=== PATIENT | female | born 1975 | race Caucasian/White ===

== ENCOUNTER 2016-04-19 20:29 | Emergency (ER) | payer BC ==
[~2016-04-19] VITALS: Ht 152.4 cm; Wt 58.2 kg
[~2016-04-19 20:29] MED LIST: DIPH25CA65 PO; VITA400C15 PO
[2016-04-19 20:32] VITALS: TEMP 37.2; Ht 152.4 cm; Wt 58.2 kg
[2016-04-19] MEDS ORDERED: ONDANSETRON INJ 2 MG/ML 2 ML VIAL IV STA (20:49)
[2016-04-19] MEDS ORDERED: FENTANYL CITRATE INJ 50 MCG/1 ML 2 ML VIAL IV STA (20:49)
[2016-04-19] MEDS ORDERED: SODIUM CHLORIDE 0.9% 1000ML 1,000 ML IV STA (20:49)
--- NOTE | 2016-04-19 20:53 | EMERGENCY ROOM VISIT NOTE ---
History First contact with patient: 20:43 Chief Complaint: FLANK PAIN Stated Complaint: LOWER BACK AND ABDOMINAL PAIN History of Present Illness The patient is a 40 year old female who presents to the Emergency Room with complaints of left flank pain. The patient states that her pain started 4 days ago. The pain is in the left flank and radiates to the left lower abdomen. The patient reports a history of kidney stone. She has had lithotripsy in the past. She states this feels like kidney stone. She rates her discomfort an 8/ 10. She denies any fevers. She denies any pain in her chest or trouble breathing. She denies any nausea or vomiting. She reports hematuria. Review of Systems A 10 system review of systems was completed with positives and pertinent negatives listed in the HPI. Past Medical/Surgical History Medical Problems: (1) Diverticula of colon (2) Endometriosis (3) Nephrolithiasis History of appendectomy Social History Smoking Status: Never Smoker Alcohol Use: occasionally Marital Status: Housing Status: lives with family Occupation Status: employed Current/Historical Medications Scheduled Ibuprofen (Advil), 200-600 MG PO Q4H Scheduled PRN Promethazine Hcl (Phenergan), 25 MG PO Q4H PRN for Nausea Allergies Coded Allergies: Ciprofloxacin (Verified Allergy, Severe, RED WELTS, 04/19/16) Erythromycin (Verified Allergy, Severe, RASH, FEVER, 04/19/16) Dextrose (Unverified Allergy, Mild, 08/09/15) Macrolides (Unverified Allergy, Mild, 08/09/15) Penicillins (Unverified Allergy, Mild, 04/19/16) Quinolones (Unverified Allergy, Mild, 08/09/15) Codeine (Unverified Allergy, Unknown, PAINFUL REDNESS OF BLE, 04/19/16) Ethanol (Unverified Allergy, Unknown, PAINFUL REDNESS OF BLE, 04/19/16) Guaifenesin (Unverified Allergy, Unknown, PAINFUL REDNESS OF BLE, 04/19/16) Pantoprazole (Verified Allergy, Unknown, itching, 04/19/16) Physical Exam Vital Signs Date Time Temp Pulse Resp B/P Pulse Ox O2 Delivery O2 Flow Rate FiO2 04/19/16 20:32 37.2 80 18 135/75 99 Room Air Physical Exam VITALS: Vitals are noted on the nurse's note and reviewed by myself. Vital signs stable. The patient is afebrile. GENERAL: This is a 40-year-old female, in no acute distress, nondiaphoretic, well-developed well-nourished. SKIN: The skin was without rashes, erythema, edema, or bruising. There is no tenting of the skin. Capillary reflex less than 2 seconds. HEAD: Normocephalic atraumatic. EARS: External auditory canals clear, tympanic membranes pearly dan without erythema or effusion bilaterally. EYES: Pupils equal round and reactive to light and accommodation. Conjunctivae without injection, sclerae without icterus. Extraocular movements intact. NOSE: Patent, turbinates without inflammation or discharge. No sinus tenderness. MOUTH: Mucous membranes moist. Tonsils are not enlarged. Pharynx without erythema or exudate. Uvula midline. Airway patent. Tongue does not deviate. NECK: Supple without nuchal rigidity. No lymphadenopathy. No thyromegaly. Cervical spine is nontender. No JVD. HEART: Regular rate and rhythm without murmurs gallops or rubs. LUNGS: Clear to auscultation bilaterally without wheezes, rales or rhonchi. No retractions or accessory muscle use. ABDOMEN: Positive bowel sounds x 4. Soft, mild tenderness to palpation to the left lower quadrant masses or organomegaly. Petty sign negative. There is moderate left-sided CVA tenderness. MUSCULOSKELETAL: No muscle atrophy, erythema, or edema noted. Full range of motion without joint tenderness in all extremities. No tenderness to palpation. Normal gait. Strength 5/5 throughout. NEURO: Patient was alert and oriented to person place and time. No focal neurological deficits. Medical Decision & Procedures ER Provider Diagnostic Interpretation: ABDOMEN AND PELVIS CT WITHOUT CONTRAST CT DOSE: 671.09 mGy.cm HISTORY: Flank pain left flank pain, h/o kidney stone TECHNIQUE: Multiaxial CT images of the abdomen and pelvis were performed without the use of intravenous and oral contrast according to the standard department stone protocol. COMPARISON STUDY: 09/22/2014 FINDINGS: Lung bases are clear. There is been a prior cholecystectomy. Liver spleen and pancreas are unremarkable. Kidneys are negative for calcification or hydronephrosis. Adrenal glands are unremarkable. There is no evidence for an obstructing urinary tract calculus. Bowel pattern is considered nonobstructive. There are several small left ovarian follicular cysts. Bladder is midline. IMPRESSION: No evidence for an obstructing urinary tract calculus. 2. Nonobstructive bowel pattern. 3. Several small left ovarian follicular cysts Laboratory Results 04/19/16 20:46 Red Blood Count 4.76, Mean Corpuscular Volume 90.3, Mean Corpuscular Hemoglobin 30.7, Mean Corpuscular Hemoglobin Concent 34.0, Mean Platelet Volume 9.6 04/19/16 20:46 Test 04/19/16 20:45 04/19/16 20:46 Urine Color YELLOW Urine Appearance CLEAR (CLEAR) Urine pH 5.5 (4.5-7.5) Urine Specific [place] 1.028 (1.000-1.030) Urine Protein NEG (NEG) Urine Glucose (UA) NEG (NEG) Urine Ketones TRACE (NEG) Urine Occult Blood TRACE (NEG) Urine Nitrite NEG (NEG) Urine Bilirubin NEG (NEG) Urine Urobilinogen NEG (NEG) Urine Leukocyte Esterase NEG (NEG) Urine WBC (Auto) 1-5 /hpf (0-5) Urine RBC (Auto) 5-10 /hpf (0-4) Urine Hyaline Casts (Auto) 1-5 /lpf (0-5) Urine Epithelial Cells (Auto) >30 /lpf (0-5) Urine Bacteria (Auto) NEG (NEG) White Blood Count 14.74 K/uL (4.8-10.8) Red Blood Count 4.76 M/uL (4.2-5.4) Hemoglobin 14.6 g/dL (12.0-16.0) Hematocrit 43.0 % (37-47) Mean Corpuscular Volume 90.3 fL (80-100) Mean Corpuscular Hemoglobin 30.7 pg (25-34) Mean Corpuscular Hemoglobin Concent 34.0 g/dl (32-36) Platelet Count 387 K/uL (130-400) Mean Platelet Volume 9.6 fL (7.4-10.4) RDW Standard Deviation 46.6 fL (36.4-46.3) RDW Coefficient of Variation 14.0 % (11.5-14.5) Anion Gap 6.0 mmol/L (3-11) Est Creatinine Clear Calc Drug Dose 62.2 ml/min Estimated GFR () 85.7 Estimated GFR (Non- 74.0 BUN/Creatinine Ratio 13.1 (10-20) Calcium Level 8.6 mg/dl (8.5-10.1) Total Bilirubin 0.3 mg/dl (0.2-1) Aspartate Amino Transf (AST/SGOT) 10 U/L (15-37) Alanine Aminotransferase (ALT/SGPT) 18 U/L (12-78) Alkaline Phosphatase 81 U/L (45-117) Total Protein 7.8 gm/dl (6.4-8.2) Albumin 4.0 gm/dl (3.4-5.0) Globulin 3.8 gm/dl (2.5-4.0) Albumin/Globulin Ratio 1.1 (0.9-2) Medications Administered Medications (Trade) Dose Ordered Sig/Ursula Route Start Time Stop Time Status Last Admin Dose Admin Sodium Chloride (Nss 1000ml) 1,000 ml @ 999 mls/hr Q1H1M STAT IV 04/19/16 20:49 04/19/16 21:49 DC 04/19/16 20:57 999 MLS/HR Ondansetron HCl (Zofran Inj) 4 mg NOW STAT IV 04/19/16 20:49 04/19/16 20:51 DC 04/19/16 21:02 4 MG Fentanyl Citrate (Fentanyl Inj) 25 mcg NOW STAT IV 04/19/16 20:49 04/19/16 20:51 DC 04/19/16 21:02 25 MCG ED Course The patient was seen and examined. Previous visits were reviewed. The patient does not have fever. She does have a leukocytosis of 14.74. She does not have any significant electrolyte abnormality. Urinalysis reveals hematuria. CT scan of the abdomen and pelvis does not reveal any obvious abnormality The patient was hydrated with normal saline She was given 25 g IV fentanyl and 4 mg IV Zofran with marked improvement in her symptoms Her urinalysis reveals hematuria but no obvious urinary tract infection. She will be given a take-home pack of [place] which she states she has taken in the past without difficulty. The patient presents with left flank pain that radiates to left abdomen. She does have a mild leukocytosis with no fever.Her symptoms may represent a recently passed kidney stone. She has an appointment with her family doctor on Friday and should keep this appointment. She should return to the ER sooner with any worsening symptoms, fevers, nausea, vomiting. the case was discussed with Dr. Orantes who agrees the assessment and treatment plan. Medical Decision DIFFERENTIAL DIAGNOSIS: Hepatitis, cholecystitis, cholangitis, biliary colic, pancreatitis, pneumonia, subdiaphragmatic abscess, appendicitis, inguinal hernia , nephrolithiasis, inflammatory bowel disease, mesenteric adenitis, peptic ulcer disease, GERD, gastritis, pancreatitis, myocardial infarction, pericarditis, ruptured aortic aneurysm, appendicitis, gastroenteritis, bowel obstruction, splenic infarct, diverticulitis, mesenteric ischemia, metabolic, peritonitis, among others. Impression Primary Impression: Flank pain Departure Information Dispostion Home / Self-Care Condition GOOD Referrals James Chang D.O. (PCP) Patient Instructions ED Flank Pain Uncertain Cause, My [facility] Additional Instructions [place] one half to one tablet every 6 hours for pain Return to the emergency department with worsening pain or fevers Otherwise, recheck with your family doctor on Friday as scheduled
[2016-04-19 21:16] LABS: BUN/CREATININE RATIO 13.1 (10-20); CALCIUM 8.6 mg/dl (8.5-10.1); CREATININE 0.96 mg/dl (0.60-1.20); POTASSIUM 4.4 mmol/L (3.5-5.1)
[2016-04-19 21:18] LABS: ALB/GLOB RATIO 1.1 (0.9-2)
[2016-04-19 21:19] LABS: MEAN CELL VOLUME 90.3 fL (80-100); MEAN CORPUSCULAR HEMOGLOBIN 30.7 pg (25-34); MEAN PLATELET VOLUME 9.6 fL (7.4-10.4); PLATELET COUNT 387 K/uL (130-400); RED BLOOD COUNT 4.76 M/uL (4.2-5.4); WHITE BLOOD COUNT 14.74 K/uL (4.8-10.8)
[2016-04-19 21:26] LABS: URINE APPEARANCE CLEAR (CLEAR); URINE BILIRUBIN NEG (NEG); URINE COLOR YELLOW; URINE EPITHELIAL CELL AUTO >30 /lpf (0-5); URINE NITRITE NEG (NEG); URINE PH 5.5 (4.5-7.5); URINE SPECIFIC GRAVITY 1.028 (1.000-1.030); UROBILINOGEN NEG (NEG); ZZUR CULT IF INDIC CLEAN CATCH NO
[2016-04-19] MEDS ORDERED: IBUP-1050 PO (21:31)
[2016-04-19] MEDS ORDERED: PROM25TA9 PO (21:31)
[2016-04-19 21:32] LABS: MANUAL MICROSCOPIC REQUIRED? NO; REVIEW REQ? YES
--- NOTE | 2016-04-19 21:34 | DIAGNOSTIC IMAGING REPORT ---
ABDOMEN AND PELVIS CT WITHOUT CONTRAST CT DOSE: 671.09 mGy.cm HISTORY: Flank pain left flank pain, h/o kidney stone TECHNIQUE: Multiaxial CT images of the abdomen and pelvis were performed without the use of intravenous and oral contrast according to the standard department stone protocol. COMPARISON STUDY: 09/22/2014 FINDINGS: Lung bases are clear. There is been a prior cholecystectomy. Liver spleen and pancreas are unremarkable. Kidneys are negative for calcification or hydronephrosis. Adrenal glands are unremarkable. There is no evidence for an obstructing urinary tract calculus. Bowel pattern is considered nonobstructive. There are several small left ovarian follicular cysts. Bladder is midline. IMPRESSION: No evidence for an obstructing urinary tract calculus. 2. Nonobstructive bowel pattern. 3. Several small left ovarian follicular cysts Electronically signed by: Cristiano Mack M.D. 04/19/2016 9:33 PM Dictated Date/Time: 04/19/2016 9:28 PM
[2016-04-19] MEDS ORDERED: NORCO 5/325MG HOME PACK PO ONE (22:15)
[2016-04-19 22:30] VITALS: BP 107/64; PULSE 64; O2SAT 98
[2016-04-19 23:30] LABS: BASO % 0.7 %; COMPLETE YES; EOS % 2.4 %; IG% 0.1 %; LYMPH % 40.2 %; LYMPH ABS # 5.93 K/uL (1.2-3.4); NEUT % 49.6 %
== END 2016-04-19 22:53 | disposition home or self-care (01) ==
LOC: C.EDB 20:30
DX: R10.30 Lower abdominal pain, unspecified (principal); D72.829 Elevated white blood cell count, unspecified; K57.30 Diverticulosis of large intestine without perforation or abscess without bleeding; N80.9 Endometriosis, unspecified; Z87.442 Personal history of urinary calculi; Z98.890 Other specified postprocedural states; Z88.0 Allergy status to penicillin; Z88.2 Allergy status to sulfonamides; Z88.6 Allergy status to analgesic agent; Z88.8 Allergy status to other drugs, medicaments and biological substances

== ENCOUNTER 2016-10-14 13:46 | Emergency (ER) | payer BC ==
[~2016-10-14] VITALS: Ht 152.4 cm; Wt 56.9 kg
[~2016-10-14 13:46] MED LIST changes: -DIPH25CA65 PO; +IBUP-1050 PO; +PROM25TA9 PO; -VITA400C15 PO
[2016-10-14 13:51] VITALS: TEMP 36.7; Ht 152.4 cm; Wt 56.9 kg
[2016-10-14] MEDS ORDERED: PROMETHAZINE HCL INJ 25 MG/ML 1 ML VIAL IV STA (15:13)
[2016-10-14] MEDS ORDERED: DiphenhydrAMINE HCL 50 MG/ML VIAL IV STA (15:13)
[2016-10-14] MEDS ORDERED: SODIUM CHLORIDE 0.9% 1000ML 1,000 ML IV STA (15:13)
[2016-10-14] MEDS ORDERED: KETOROLAC TROMETHAMINE 30 MG/ML VIAL IV STA (15:13)
[2016-10-14] MEDS ORDERED: PROMETHAZINE HCL INJ 12.5 MG in SODIUM CHLORIDE 0.9% 50ML 50 ML IV SCH (15:13)
[2016-10-14] MEDS ORDERED: ACETAMINOPHEN 325 MG TAB PO STA (15:13)
[2016-10-14] MEDS ORDERED: MULT-506 PO (15:20)
--- NOTE | 2016-10-14 15:28 | EMERGENCY ROOM VISIT NOTE ---
History Report prepared by Rebeca: Guy Bates Under the Supervision of: Dr. Sunday Khanna M.D. First contact with patient: 15:06 Chief Complaint: PELVIC PAIN Stated Complaint: SEVERE LEFT SIDED PELVIC PAIN History of Present Illness The patient is a 40 year old female who presents to the Emergency Room with complaints of worsening burning and pulling left pelvic pain starting around two weeks ago. The patient states that the pain started worsening a few days ago. She currently rates her discomfort as a 9/10 in severity. The patient is additionally complaining of nausea and a headache. The patient denies any urinary symptoms, problems with her bowels, or vaginal discharge. The patient states that nothing makes that pain better or worse including ibuprofen. The patient additionally states that she does not have a left ovary due to a past cyst and blood clot and endometriosis. She additionally states that she has had kidney stones in the past, though this feels different. Additionally the patient has had her gallbladder removed and she has had a colonoscopy which came back normal. The patient states that she took Ibuprofen this morning around 10:00. Source of History: patient Onset: two weeks ago Position: pelvis (left) Symptom Intensity: 9/10 Quality: burning, other (pulling) Timing: worsening Associated Symptoms: + headache, + nausea, No urinary symptoms Review of Systems See HPI for pertinent positives & negatives. A total of 10 systems reviewed and were otherwise negative. Past Medical & Surgical Medical Problems: (1) Diverticula of colon (2) Endometriosis (3) Nephrolithiasis Social History Smoking Status: Never Smoker Alcohol Use: occasionally Marital Status: Housing Status: lives with family Occupation Status: employed Current/Historical Medications Scheduled Multivitamin (Multivitamin), 1 TAB PO DAILY Scheduled PRN Hydrocodone/Acetaminophen 5MG/325MG ([place] 5MG/325MG), 1 TABLET PO Q4 PRN for Pain Allergies Coded Allergies: Ciprofloxacin (Verified Allergy, Severe, RED WELTS, 04/19/16) Erythromycin (Verified Allergy, Severe, RASH, FEVER, 04/19/16) Dextrose (Verified Allergy, Mild, 10/14/16) Macrolides (Verified Allergy, Mild, 10/14/16) Penicillins (Verified Allergy, Mild, 10/14/16) Quinolones (Verified Allergy, Mild, 10/14/16) Codeine (Verified Allergy, Unknown, PAINFUL REDNESS OF BLE, 10/14/16) Ethanol (Verified Allergy, Unknown, PAINFUL REDNESS OF BLE, 10/14/16) Guaifenesin (Verified Allergy, Unknown, PAINFUL REDNESS OF BLE, 10/14/16) Pantoprazole (Verified Allergy, Unknown, itching, 04/19/16) Physical Exam Vital Signs Date Time Temp Pulse Resp B/P (MAP) Pulse Ox O2 Delivery O2 Flow Rate FiO2 10/14/16 17:11 57 18 108/58 100 Room Air 10/14/16 15:39 60 16 136/76 99 Room Air 10/14/16 13:51 36.7 87 18 130/78 98 Room Air Physical Exam GENERAL: Patient is in no acute distress. HEENT: No acute trauma, normocephalic atraumatic, mucous membranes moist, no nasal congestion, no scleral icterus. NECK: No stridor, no adenopathy, no meningismus, trachea is midline. LUNGS: Clear to auscultation bilaterally, no wheeze, no rhonchi, breath sounds equal. HEART: Without murmurs gallops or rubs, regular rate and rhythm. ABDOMEN: Tenderness along the entire left side mostly in the left upper quadrant. Soft, bowel sounds positive, no hernias, no peritonitis. BACK: Left flank discomfort with percussion. EXTREMITIES: No cyanosis or edema, full range of motion of all the joints without pain or difficulty, no signs for acute trauma. NEUROLOGIC: Oriented x 3, no acute motor or sensory deficits, no focal weakness. SKIN: No rash, no jaundice, no diaphoresis. Medical Decision & Procedures ER Provider Diagnostic Interpretation: Radiology results as stated below per my review and radiologist interpretation: CT SCAN OF THE ABDOMEN AND PELVIS WITHOUT CONTRAST CLINICAL HISTORY: Left flank pain and hematuria COMPARISON STUDY: 04/19/2016 TECHNIQUE: CT scan of the abdomen and pelvis was performed from the lung bases to the proximal femurs. Images are reviewed in the axial, sagittal, and coronal planes. IV contrast was not administered for this examination. A dose lowering technique was utilized adhering to the principles of ALARA. CT DOSE: 512.29 mGy.cm FINDINGS: Lower chest: There are mild bibasal atelectatic changes Liver: The unenhanced liver is normal in size, contour, and attenuation. There is no intrahepatic biliary ductal dilatation. Gallbladder: Surgically absent Spleen: Normal in size and attenuation. Pancreas: Unremarkable. Adrenal glands: Unremarkable. Kidneys: There is a 2 mm nonobstructing left renal calculus. No ureteral or bladder calculi are visualized. Bowel: There are no transition zones indicate bowel obstruction. By history the appendix is surgically absent. There is no acute diverticulitis. Peritoneum: There is no intraperitoneal free air or abdominal ascites. There is a small fat-containing umbilical hernia. Vasculature: The abdominal aorta is normal in course and caliber. Adenopathy: None. Pelvic viscera: The uterus is surgically absent. Skeletal structures: No destructive osseous lesions are seen. IMPRESSION: 1. Nonobstructing 2 mm left renal calculus 2. No ureteral or bladder calculi identified 3. Surgically absent gallbladder and appendix 4. No acute inflammatory changes Electronically signed by: Chucho William M.D. 10/14/2016 3:57 PM Dictated Date/Time: 10/14/2016 3:52 PM Laboratory Results 10/14/16 15:29 Red Blood Count 4.83, Mean Corpuscular Volume 90.5, Mean Corpuscular Hemoglobin 30.4, Mean Corpuscular Hemoglobin Concent 33.6, Mean Platelet Volume 10.1 10/14/16 15:29 Test 10/14/16 15:23 10/14/16 15:29 Urine Color YELLOW Urine Appearance CLEAR (CLEAR) Urine pH 6.5 (4.5-7.5) Urine Specific [place] 1.017 (1.000-1.030) Urine Protein NEG (NEG) Urine Glucose (UA) NEG (NEG) Urine Ketones NEG (NEG) Urine Occult Blood NEG (NEG) Urine Nitrite NEG (NEG) Urine Bilirubin NEG (NEG) Urine Urobilinogen NEG (NEG) Urine Leukocyte Esterase NEG (NEG) White Blood Count 13.11 K/uL (4.8-10.8) Red Blood Count 4.83 M/uL (4.2-5.4) Hemoglobin 14.7 g/dL (12.0-16.0) Hematocrit 43.7 % (37-47) Mean Corpuscular Volume 90.5 fL (80-100) Mean Corpuscular Hemoglobin 30.4 pg (25-34) Mean Corpuscular Hemoglobin Concent 33.6 g/dl (32-36) Platelet Count 391 K/uL (130-400) Mean Platelet Volume 10.1 fL (7.4-10.4) RDW Standard Deviation 45.7 fL (36.4-46.3) RDW Coefficient of Variation 13.8 % (11.5-14.5) Neutrophils % (Manual) 44.7 % Lymphocytes % (Manual) 37.7 % Variant Lymphocytes % (manual) 12.3 % Monocytes % (Manual) 4.4 % Eosinophils % (Manual) 0.9 % Neutrophils # (Manual) 5.86 K/uL (1.4-6.5) Total Absolute Neutrophils 5.86 K/uL (1.4-6.5) Lymphocytes # (Manual) 4.94 K/uL (1.2-3.4) Absolute Variant Lymphocytes 1.61 K/uL Total Absolute Lymphocytes 6.56 K/uL (1.2-3.4) Monocytes # (Manual) 0.58 K/uL (0.11-0.59) Eosinophils # (Manual) 0.12 K/uL (0-0.5) Anion Gap 4.0 mmol/L (3-11) Est Creatinine Clear Calc Drug Dose 67.9 ml/min Estimated GFR () 96.6 Estimated GFR (Non- 83.3 BUN/Creatinine Ratio 15.2 (10-20) Calcium Level 8.5 mg/dl (8.5-10.1) Total Bilirubin 0.4 mg/dl (0.2-1) Aspartate Amino Transf (AST/SGOT) 11 U/L (15-37) Alanine Aminotransferase (ALT/SGPT) 15 U/L (12-78) Alkaline Phosphatase 74 U/L (45-117) Total Protein 7.3 gm/dl (6.4-8.2) Albumin 3.5 gm/dl (3.4-5.0) Globulin 3.8 gm/dl (2.5-4.0) Albumin/Globulin Ratio 0.9 (0.9-2) Lipase 144 U/L (73-393) Human Chorionic Gonadotropin, Qual NEG (NEG) Laboratory results reviewed by me. Medications Administered Medications (Trade) Dose Ordered Sig/Ursula Route Start Time Stop Time Status Last Admin Dose Admin Sodium Chloride 1,000 ml @ 999 mls/hr Q1H1M STAT IV 10/14/16 15:13 10/14/16 16:13 DC 10/14/16 15:35 999 MLS/HR Ketorolac Tromethamine (Toradol Inj) 30 mg NOW STAT IV 10/14/16 15:13 10/14/16 15:17 DC 10/14/16 15:35 30 MG Diphenhydramine HCl (Benadryl Inj) 25 mg NOW STAT IV 10/14/16 15:13 10/14/16 15:17 DC 10/14/16 15:35 25 MG Acetaminophen (Tylenol Tab) 650 mg NOW STAT PO 10/14/16 15:13 10/14/16 15:17 DC 10/14/16 15:35 650 MG Promethazine HCl 12.5 mg/Sodium Chloride 50.5 ml @ 202 mls/hr TODAY@1513 IV 10/14/16 15:13 10/14/16 17:40 DC 10/14/16 15:54 202 MLS/HR ED Course 1506: The patient was evaluated in room A2. A complete history and physical exam was performed. 1513: Promethazine HCl 12.5mg/ Sodium Chloride 50.5ml @ 202mls/hr IV, Tylenol Tab 650mg PO, Benadryl Inj 25mg IV, Toradol Inj 30mg IV, Sodium Chloride 1000 ml @ 999 mls/hr IV 1703: I reevaluated the patient, and she was doing better. 1724: Reevaluated the patient. Discussed results and discharge instructions: She verbalized understanding and agreement. The patient is ready for discharge. Medical Decision Differential diagnoses include: adhesions, musculoskeletal pain, hernia, renal colic, UTI, PID, diverticulitis, pancreatitis, shingles There is a mild leukocytosis, this could be consistent with infection or just her pain. Looking back at previous testing, her white count has been elevated like this in the past. There is no anemia. No significant electrolyte abnormality, kidney failure, hepatitis or pancreatitis. Urinalysis does not show hematuria or infection. Abdominal and pelvis CT does not show any abscess or bowel obstruction. There is no free air. No evidence for diverticulitis. No ureteral stone seen. testing is negative. The patient received IV saline, IV Phenergan, IV Benadryl, IV Toradol and oral Tylenol. She seems more comfortable. The cause for the pain is unclear but she has had this pain on and off before. She was here in April for similar discomfort and her workup was benign at that time as well. The patient is being prescribed [place] for severe pain, heat to the area was suggested. She will follow with her doctors office for a possible surgical or [employer] referral. If worsening, she will return. [place] Drug Monitoring Program Search Results: patient reviewed within database, no issues identified Medication Reconcilliation Current Medication List: was personally reviewed by me Blood Pressure Screening Patient's blood pressure: Normal blood pressure Impression Primary Impression: Left flank pain Additional Impression: Left sided abdominal pain Scribe Attestation The scribe's documentation has been prepared under my direction and personally reviewed by me in its entirety. I confirm that the note above accurately reflects all work, treatment, procedures, and medical decision making performed by me. Departure Information Dispostion Home / Self-Care Prescriptions Hydrocodone/Acetaminophen 5MG/325MG ([place] 5MG/325MG) Tab 1 TABLET PO Q4 Y for Pain, #12 TAB Prov: Sunday Khanna M.D. 10/14/16 Referrals James Chang D.O. (PCP) Forms HOME CARE DOCUMENTATION FORM, IMPORTANT VISIT INFORMATION Patient Instructions [facility] Additional Instructions heat may help norco 1-2 tab every 4 hours for severe pain talk with the [facility] md for possible surgical or [facility] [employer] referral return for fever, vomiting or uncontrolled pain imaging was ok today Problem Qualifiers
[2016-10-14 15:47] LABS: URINE APPEARANCE CLEAR (CLEAR); URINE BILIRUBIN NEG (NEG); URINE COLOR YELLOW; URINE NITRITE NEG (NEG); URINE PH 6.5 (4.5-7.5); URINE SPECIFIC GRAVITY 1.017 (1.000-1.030); UROBILINOGEN NEG (NEG); ZZUR CULT IF INDIC CLEAN CATCH NO
[2016-10-14 15:48] LABS: HEMATOCRIT 43.7 % (37-47); MEAN CELL VOLUME 90.5 fL (80-100); MEAN CORPUSCULAR HEMOGLOBIN 30.4 pg (25-34); MEAN CORPUSCULAR HGB CONC 33.6 g/dl (32-36); MEAN PLATELET VOLUME 10.1 fL (7.4-10.4); PLATELET COUNT 391 K/uL (130-400); RED BLOOD COUNT 4.83 M/uL (4.2-5.4); WHITE BLOOD COUNT 13.11 K/uL (4.8-10.8)
[2016-10-14 15:57] LABS: MANUAL MICROSCOPIC REQUIRED? NO; REVIEW REQ? NO
--- NOTE | 2016-10-14 15:59 | DIAGNOSTIC IMAGING REPORT ---
CT SCAN OF THE ABDOMEN AND PELVIS WITHOUT CONTRAST CLINICAL HISTORY: Left flank pain and hematuria COMPARISON STUDY: 04/19/2016 TECHNIQUE: CT scan of the abdomen and pelvis was performed from the lung bases to the proximal femurs. Images are reviewed in the axial, sagittal, and coronal planes. IV contrast was not administered for this examination. A dose lowering technique was utilized adhering to the principles of ALARA. CT DOSE: 512.29 mGy.cm FINDINGS: Lower chest: There are mild bibasal atelectatic changes Liver: The unenhanced liver is normal in size, contour, and attenuation. There is no intrahepatic biliary ductal dilatation. Gallbladder: Surgically absent Spleen: Normal in size and attenuation. Pancreas: Unremarkable. Adrenal glands: Unremarkable. Kidneys: There is a 2 mm nonobstructing left renal calculus. No ureteral or bladder calculi are visualized. Bowel: There are no transition zones indicate bowel obstruction. By history the appendix is surgically absent. There is no acute diverticulitis. Peritoneum: There is no intraperitoneal free air or abdominal ascites. There is a small fat-containing umbilical hernia. Vasculature: The abdominal aorta is normal in course and caliber. Adenopathy: None. Pelvic viscera: The uterus is surgically absent. Skeletal structures: No destructive osseous lesions are seen. IMPRESSION: 1. Nonobstructing 2 mm left renal calculus 2. No ureteral or bladder calculi identified 3. Surgically absent gallbladder and appendix 4. No acute inflammatory changes Electronically signed by: Chucho William M.D. 10/14/2016 3:57 PM Dictated Date/Time: 10/14/2016 3:52 PM
[2016-10-14 16:07] LABS: BUN/CREATININE RATIO 15.2 (10-20); CALCIUM 8.5 mg/dl (8.5-10.1); CREATININE 0.87 mg/dl (0.60-1.20); POTASSIUM 4.2 mmol/L (3.5-5.1)
[2016-10-14 16:10] LABS: ALB/GLOB RATIO 0.9 (0.9-2)
[2016-10-14 16:15] LABS: PREG INTERNAL NEGATIVE QC NEG CLEAR BACKGROUND; PREG INTERNAL POSITIVE QC POS CONTROL LINE
[2016-10-14 16:30] LABS: COMPLETE YES; EOSINOPHIL % 0.9 %; LYMPH ABS # 4.94 K/uL (1.2-3.4); LYMPHOCYTE % 37.7 %; NEUTROPHILS % 44.7 %; VARIANT LYM ABS # 1.61 K/uL; VARIANT LYMPHOCYTE % 12.3 %
[2016-10-14 17:11] VITALS: BP 108/58; PULSE 57; O2SAT 100
[2016-10-14] MEDS ORDERED: HYDR-5688 PO (17:27)
== END 2016-10-14 17:32 | disposition home or self-care (01) ==
LOC: C.EDB 13:48 → C.EDA 17:32
DX: R10.32 Left lower quadrant pain (principal); R11.0 Nausea; R51 Headache; Z87.442 Personal history of urinary calculi